=== PATIENT | female | born 1995 | race Caucasian/White ===

== ENCOUNTER 2017-10-24 10:45 | Emergency (ER) | payer OTHER ==
[2017-10-24 10:55] VITALS: BP 121/62; PULSE 81; TEMP 98.4; BMI 23.3
--- NOTE | 2017-10-24 11:09 | PDOC ---
History of Present Illness - General Chief Complaint: Revisit, Lab Variance Stated Complaint: confirmation Time Seen by Provider: 10/24/17 10:58 History Source: Patient Exam Limitations: No Limitations - History of Present Illness Initial Comments: 10/24/17 11:13 22-year-old female here for evaluation of confirmation. Patient states Has no abdominal pain but states mild nausea. Patient states took the test twice Which were both positive. Patient denies abdominal pain, urinary complaints, back pain, or fever. Timing/Duration: unsure Associated Symptoms: reports: denies symptoms Past History - Travel Traveled outside of the country in the last 30 days: No - Past Medical History Allergies/Adverse Reactions: Allergies Allergy/AdvReac Type Severity Reaction Status Date / Time No Known Allergies Allergy Verified 10/24/17 10:55 Home Medications: Ambulatory Orders Enalapril Maleate [Vasotec -] 10 mg PO BID 10/24/17 Insulin Pump/Infus. Set/Meter [Accu-Chek Combo System] 1 each MC ASDIR 10/24/17 COPD: No Diabetes: Yes (iddm) - Suicide/Smoking/Psychosocial Hx Smoking History: Never smoked Patient Lives Alone: No Lives with/in: parents Review of Systems - Review of Systems Able to Perform ROS?: Yes Constitutional: No: Symptoms Reported HEENTM: No: Symptoms Reported Respiratory: No: Symptoms reported Cardiac (ROS): No: Symptoms Reported ABD/GI: Yes: Nausea (mild) : No: Symptoms Reported *Physical Exam - Vital Signs Last Vital Signs Temp Pulse Resp BP Pulse Ox 98.4 F 81 18 121/62 100 10/24/17 10:51 10/24/17 10:51 10/24/17 10:51 10/24/17 10:51 10/24/17 10:51 - Physical Exam General Appearance: Yes: Nourished, Appropriately Dressed. No: Apparent Distress Gastrointestinal/Abdominal: positive: Normal Bowel Sounds, Soft, Tenderness Integumentary: positive: Normal Color, Warm, Moist Neurologic: positive: Motor Strength 5/5 (ambulatory) Medical Decision Making - Medical Decision Making 10/24/17 11:15 Patient here for testing. Patient no complaints on exam. Patient had no acute findings on exam. Patient ordered for urine . 10/24/17 11:28 Laboratory Tests 10/24/17 10:59 Urine HCG, Qual Positive Patient will follow up with Ajit Pizarro. *DC/Admit/Observation/Transfer Diagnosis at time of Disposition: Visit for confirmation of test result with physical exam - Discharge Dispostion Disposition: HOME Condition at time of disposition: Good - Referrals Referrals: Treasure Mosley [Primary Care Provider] - Osbaldo Fong [Nurse Practitioner] - - Patient Instructions Printed Discharge Instructions: DI for -- Discomforts and Remedies Additional Instructions: Please follow-up at the clinic with your provider. Return to ED if any symptoms occur such as abdominal pain, vaginal bleeding, or urinary discomfort. - Post Discharge Activity
== END 2017-10-24 11:34 | disposition home or self-care (01) ==
LOC: JER 10:45
DX: Z32.00 Encounter for pregnancy test, result unknown (principal)
CPT/HCPCS: 84703; 99281-25

== ENCOUNTER 2017-11-24 13:20 | Emergency (ER) | payer OTHER ==
--- NOTE | 2017-11-24 14:28 | PDOC ---
Attending Attestation - HPI HPI: 11/24/17 15:22 The patient is a 31 year old female G1PO who is 10 weeks with a significant PMH of insulin-dependent diabetes who presents to the ED with fatigue and disorientation beginning this morning. The patient has a history of hypoglycemic episodes and has had numerous hypoglycemic episodes during . The patient sees Dr. Pink regularly, a high heel builder/GYN at [facility]. Allergies: NKA <Eber Perry - Last Filed: 11/24/17 15:22> - Resident Resident Name: Micha Flores - ED Attending Attestation I have performed the following: I have examined & evaluated the patient, The case was reviewed & discussed with the resident, I agree w/resident's findings & plan, Exceptions are as noted - Physicial Exam PE: 11/24/17 17:37 Patient is awake and alert, afebrile, well-appearing, in no distress perrla, eomi mmm 'cta rrr sft, nt, nd - Medical Decision Making 11/24/17 17:38 Patient is a 22-year-old female with history of diabetes, 1 para 0 at 10 weeks gestation by [employer] who presents to the ER after a hypoglycemic episode which resolved after administration of IV dextrose by EMS. In the ER, patient is awake and alert, well-appearing, in no distress. Serial BGM's reveal no recurrent hypoglycemia. Transvaginal ultrasound shows an IUP at 10 weeks with FH inadequate amount of amniotic fluid. Patient advised of the risk to the caused by recurrent episodes of severe hypoglycemia. Patient expressed understanding and will follow-up with PMD. <Pancho Mcguire - Last Filed: 11/24/17 17:39>
[2017-11-24 14:30] VITALS: BMI 22.1
--- NOTE | 2017-11-24 14:37 | PDOC ---
History of Present Illness - General Stated Complaint: BLLOOD SUGAR ISSUE Time Seen by Provider: 11/24/17 14:00 - History of Present Illness Initial Comments: 11/24/17 14:12 Pt is a 22 y/o F in her 10th week of (sees Dr. 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 Per pt and mother, pt has been having hypoglycemic episodes all her life including childhood hypoglycemic seizures years ago. She has had numerous episodes of hypoglycemia during her with blood sugar dropping to the 30s and 40s, but pt has not had LOC/ seizures/symptoms of hypoglycemia recently. However, last night, pt went to sleep feeling well, and this morning was not easily rousable. Pt's mother states she tried waking the pt, but pt was not oriented and was groggy. Mom checked pt's glucose, and found it was 24. Pt's mother called 911. En route, pt got dextrose IV and f/u BGM was 223. In ED pt is awake, alert, oriented, and in NAD. Pt has no symptoms at this time. Past History - Past Medical History Allergies/Adverse Reactions: Allergies Allergy/AdvReac Type Severity Reaction Status Date / Time No Known Allergies Allergy Verified 11/24/17 14:18 Home Medications: Ambulatory Orders Diabetic Supplies,Miscell [Medtronic Remote Control] 1 each ASDIR 11/24/17 Insulin Aspart [Novolog] 0 unit SQ ASDIR 11/24/17 Insulin Pump/Infus. Set/Meter [Accu-Chek Combo System] 1 each ASDIR 11/24/17 COPD: No Diabetes: Yes (iddm) - Suicide/Smoking/Psychosocial Hx Smoking History: Never smoked Review of Systems - Review of Systems Able to Perform ROS?: Yes Is the patient limited [place] proficient: No Constitutional: Yes: Symptoms Reported. No: Chills, Diaphoresis, Fever, Night Sweats HEENTM: Yes: Symptoms Reported. No: Blurred Vision Respiratory: Yes: Symptoms reported. No: Cough, Orthopnea, Shortness of Breath , Wheezing, Productive cough Cardiac (ROS): Yes: Symptoms Reported. No: Chest Pain, Edema, Irregular Heart Rate, Lightheadedness, Palpitations ABD/GI: Yes: Symptoms Reported. No: Abdominal Distended, Difficulty Swallowing , Nausea, Poor Appetite, Poor Fluid Intake, Vomiting, Abdominal cramping : Yes: Symptoms Reported. No: Burning, Dysuria, Discharge, Hematuria, Pain Neurological: Yes: Symptoms reported, Headache (mild bitemporal headache) *Physical Exam - Physical Exam General Appearance: Yes: Nourished, Appropriately Dressed. No: Apparent Distress, Disheveled HEENT: positive: EOMI, JENNA, Normal ENT Inspection, Normal Voice, Symmetrical, Pharynx Normal Neck: positive: Supple. negative: Tender Respiratory/Chest: positive: Lungs Clear, Normal Breath Sounds. negative: Chest Tender Cardiovascular: positive: Regular Rhythm, Regular Rate, S1, S2. 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 Pt got dextrose in ambulance, which resolved her symptoms. Plan -feed -U/S 11/24/17 17:30 Pt is doing well. BGM 300 Stable for D/C with strict instructions to monitor glucose and avoid low sugars and to follow up promptly with [facility] BIOSTATISTICIAN *DC/Admit/Observation/Transfer Diagnosis at time of Disposition: Hypoglycemia due to type 1 diabetes mellitus - Discharge Dispostion Disposition: HOME Condition at time of disposition: Stable Admit: No - Referrals - Patient Instructions Additional Instructions: Please make sure you take all your prescription medications as directed. Please follow up with your RESEARCH BIOSTATISTICIAN as soon as possible to discuss management of your diabetes. If your symptoms return or if you develop new symptoms, please return to the ED. - Post Discharge Activity
[2017-11-24] MEDS ORDERED: ACETAMINOPHEN 325 MG TABLET (FP) PO ONE ×2 (16:09→16:19)
[2017-11-24] MEDS ORDERED: ONDANSETRON 4 MG/2 ML VIAL IVPUSH ONE (16:10)
[2017-11-24] MEDS ORDERED: ONDANSETRON 4 MG/2 ML VIAL ONE (16:11)
[2017-11-24] MEDS ORDERED: ACETAMINOPHEN 325 MG TABLET (FP) ONE (16:11)
[2017-11-24 17:42] VITALS: BP 124/74; PULSE 80; TEMP 98.5
== END 2017-11-24 17:41 | disposition home or self-care (01) ==
LOC: JER 13:20
PROC: 3E033GC Introduction of Other Therapeutic Substance into Peripheral Vein, Percutaneous Approach (ICD-10-PCS; principal; 2017-11-24)
DX: O26.891 Other specified pregnancy related conditions, first trimester (principal); Z3A.10 10 weeks gestation of pregnancy; E11.649 Type 2 diabetes mellitus with hypoglycemia without coma
CPT/HCPCS: 76801-TC; 82962; 96374; 99283-25

== ENCOUNTER 2017-12-23 22:46 | Emergency (ER) | payer OTHER ==
[2017-12-23 23:04] VITALS: BMI 22.3
--- NOTE | 2017-12-23 23:22 | PDOC ---
History of Present Illness - General Chief Complaint: Nausea/Vomiting Stated Complaint: COLD SYMPTOMS/14 WKS Time Seen by Provider: 12/23/17 23:15 - History of Present Illness Initial Comments: 12/23/17 23:21 CHIEF COMPLAINT: vomiting HISTORY OF PRESENT ILLNESS: 22 yo F with hx of insulin dependent diabetes, 14 wks (LMP: 09/15/17 ) presents to ED with nausea and vomiting. Patient states she sees Dr. 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. She reports that someone at home has "had the stomach bug" and was vomiting as well. She reports sneezing and runny nose but denies cough, fever, or diarrhea. She denies any abdominal pain, pelvic pain, or vaginal bleeding. No recent travel or sick contacts. PAST MEDICAL HISTORY: IDDM FAMILY HISTORY: Denies SOCIAL HISTORY: Denies tobacco, alcohol, illicit drug use. SURGICAL HISTORY: Denies ALLERGIES: No known drug allergies REVIEW OF SYSTEMS General/Constitutional: Denies fever or chills. Denies weakness. HEENT: Denies change in vision. Denies ear pain or discharge. Denies sore throat. Cardiovascular: Denies chest pain or shortness of breath. Respiratory: Denies cough, wheezing, or hemoptysis. Gastrointestinal: Denies nausea, vomiting, diarrhea or constipation. Denies rectal bleeding. Genitourinary: Denies dysuria, frequency, or change in urination. Musculoskeletal: Denies joint or muscle swelling or pain. Denies neck or back pain. Skin and breasts: Denies rash or easy bruising. Neurologic: Denies headache, vertigo, loss of consciousness, or loss of sensation. PHYSICAL EXAM General Appearance: Well-appearing, appropriately dressed. No apparent distress. HEENT: EOMI, PERRLA, normal ENT inspection, normal voice, TMs normal, pharynx normal. No conjunctival pallor. No photophobia, scleral icterus. Respiratory/Chest: Lungs CTAB. No shortness of breath, chest tenderness, respiratory distress, accessory muscle use. No crackles, rales, rhonchi, stridor , wheezing, dullness Cardiovascular: RRR. S1, S2. Vascular Pulses: Dorsalis-Pedis (R): 2+, Dorsalis-Pedis (L): 2+ Gastrointestinal/Abdominal: Normal bowel sounds. Abdomen soft, non-distended. No tenderness or rebound tenderness. No organomegaly, pulsatile mass, guarding , hernia, hepatomegaly, splenomegaly. Lymphatic: No adenopathy, tenderness. Musculoskeletal/Extremities: Normal inspection. FROM of all extremities, normal capillary refill. Pelvis Stable. No CVA tenderness. No tenderness to extremities, pedal edema, swelling, erythema or deformity. Integumentary: Appropriate color, dry, warm. 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 Fully oriented, alert. Appropriate mood/affect. Motor strength 5/5. No appreciable EOM palsy, facial droop or sensory deficit. 12/23/17 23:27 Past History - Past Medical History Allergies/Adverse Reactions: Allergies Allergy/AdvReac Type Severity Reaction Status Date / Time No Known Allergies Allergy Verified 12/23/17 23:02 Home Medications: Ambulatory Orders Diabetic Supplies,Miscell [[employer] Remote Control] 1 each ASDIR 11/24/17 Insulin Aspart [Novolog] 0 unit SQ ASDIR 11/24/17 Insulin Pump/Infus. Set/Meter [Accu-Chek Combo System] 1 each ASDIR 11/24/17 Ondansetron [Zofran Odt -] 4 mg SL TID PRN #21 od.tablet 12/24/17 COPD: No Diabetes: Yes (iddm) - Immunization History Immunization Up to Date: Yes - Suicide/Smoking/Psychosocial Hx Smoking History: Never smoked Hx Alcohol Use: No Drug/Substance Use Hx: No *Physical Exam - Vital Signs Last Vital Signs Temp Pulse Resp BP Pulse Ox 99.1 F 121 H 20 107/63 100 12/23/17 23:02 12/23/17 23:02 12/23/17 23:02 12/23/17 23:02 12/23/17 23:02 ED Treatment Course - LABORATORY CBC & Chemistry Diagram: 12/24/17 00:17 12/24/17 00:17 *DC/Admit/Observation/Transfer Diagnosis at time of Disposition: Vomiting during - Discharge Dispostion Disposition: HOME Condition at time of disposition: Stable Admit: No - Prescriptions Prescriptions: Ondansetron [Zofran Odt -] 4 mg SL TID PRN #21 od.tablet PRN Reason: Nausea And/Or Vomiting - Referrals Referrals: Randal Montoya MD [Staff Physician] - - Patient Instructions Printed Discharge Instructions: DI for Vomiting -- Adult Additional Instructions: Please take medications as prescribed and drink plenty of fluids. Follow up with your OBGYN by the end of the week. If you develop fever, chills, persistent vomiting unrelieved by medication, or any new or worsening symptoms, please return to the ER. - Post Discharge Activity
[2017-12-23] MEDS ORDERED: SODIUM CHLORIDE 0.9% 1000 ML INFUS.BAG IV ONE (23:25)
[2017-12-23] MEDS ORDERED: ONDANSETRON 4 MG/2 ML VIAL IVPUSH ONE (23:25)
[2017-12-24 00:23] LABS: BASO % 0.3 % (0-2.0); EOS % 1.9 % (0-4.5); HEMATOCRIT 36.4 % (32.4-45.2); HEMOGLOBIN 12.7 GM/dL (10.7-15.3); MCH 30.6 pg (25.7-33.7); MCHC 34.8 g/dl (32.0-36.0); MEAN CELL VOLUME 87.8 fl (80-96); MEAN PLT VOLUME 8.2 fl (7.5-11.1); MONO % 6.8 % (3.8-10.2); PLATELET COUNT 294 K/MM3 (134-434); RBC 4.14 M/mm3 (3.60-5.2); RDW 13.3 % (11.6-15.6); WHITE BLOOD COUNT 11.4 K/mm3 (4.0-10.0)
[2017-12-24] MEDS ORDERED: ONDANSETRON 4 MG/2 ML VIAL ONE (00:35)
[2017-12-24 00:53] LABS: ALBUMIN 3.7 g/dl (3.4-5.0); ALK PHOS 47 U/L (45-117); ANION GAP 10 (8-16); BILIRUBIN,TOTAL 0.5 mg/dL (0.2-1.0); BLOOD UREA NITROGEN 11 mg/dL (7-18); CALCIUM 9.3 mg/dL (8.5-10.1); CHLORIDE 103 mmol/L (98-107); CO2 24 mmol/L (21-32); CREATININE 0.5 mg/dL (0.55-1.02); GLUCOSE,RANDOM 56 mg/dL (74-106); POTASSIUM 3.6 mmol/L (3.5-5.1); SGOT/AST 7 U/L (15-37); SGPT/ALT 16 U/L (12-78); SODIUM 137 mmol/L (136-145); TOT PROT 7.4 g/dl (6.4-8.2)
[2017-12-24 01:35] VITALS: BP 116/58; PULSE 79; TEMP 98.6
== END 2017-12-24 02:14 | disposition home or self-care (01) ==
LOC: JER 22:46
PROC: 3E033GC Introduction of Other Therapeutic Substance into Peripheral Vein, Percutaneous Approach (ICD-10-PCS; principal; 2017-12-23)
DX: O26.892 Other specified pregnancy related conditions, second trimester (principal); O21.0 Mild hyperemesis gravidarum; E10.9 Type 1 diabetes mellitus without complications; Z79.4 Long term (current) use of insulin; O24.912 Unspecified diabetes mellitus in pregnancy, second trimester; Z3A.14 14 weeks gestation of pregnancy
CPT/HCPCS: 36415; 80053; 85025; 87804; 99282-25